=== PATIENT | female | born 1990 | race Caucasian/White ===

== ENCOUNTER 2020-10-09 04:31 | Outpatient (CLI) | payer MEDICAID, SELFPAY ==
[2020-10-09 12:46] LABS: Abs Immature Grans 0.02 10^3/uL (0.0-0.06); Absolute Basophil Count 0.05 10^3/uL (0.0-0.2); Absolute Eosinophil Count 0.07 10^3/uL (0.0-0.7); Absolute Monocyte Count 0.62 10^3/uL (0.1-0.8); Absolute Neutrophil Count 6.71 10^3/uL (1.2-6.7); Basophils % 0.5; Eosinophils % 0.7; HCT 40.2 % (36.0-46.0); HGB 13.9 g/dL (11.2-15.7); Immature Grans % 0.2; Lymphocytes % 20.3; MCH 31.6 pg (27.0-33.0); MCHC 34.6 % (32.0-36.0); MCV 91.4 fL (80-95); MPV 9.6 fL (8.0-11.0); Monocytes % 6.6; Neutrophils % 71.7; Nucleated RBC 0 %; Platelet Count 279 10^3/uL (130-400); RDW 12.5 % (11.7-14.6); RDW-SD 41.4 fL; WBC 9.37 10^3/uL (4.4-10.8)
[2020-10-10 10:00] LABS: Varicella IgG Antibody Positive (See Note)
[2020-10-10 10:05] LABS: Rubella IgG Ab (UVM) Positive (See Note); Syphilis Serology (RPR) Negative (Negative)
[2020-10-10 10:53] LABS: Hepatitis B Surface Ag Negative (Negative)
[2020-10-10 11:27] LABS: HIV-1/2 Ag & Ab Screen Negative (Negative)
[2020-10-10 11:37] LABS: Hepatitis C Ab w Rflx HCV PCR Negative (Negative)
[2020-10-13 16:15] LABS: Result Summary NEGATIVE; Specimen WB Whole Blood
== END 2020-10-09 04:51 ==
PROVIDERS: Advanced Practice Midwife; PCP Registered Nurse; Visit Provider Advanced Practice Midwife
DX: Z34.92 Encounter for supervision of normal pregnancy, unspecified, second trimester (principal); Z11.4 Encounter for screening for human immunodeficiency virus [HIV]; Z11.59 Encounter for screening for other viral diseases
CPT/HCPCS: 36415; 86787; 86803; 86850; 86900; 86901; 87340; 87389; 81220; 84443; 85025; 86592; 86762

== ENCOUNTER 2020-10-09 13:08 | Outpatient (REF) | payer MEDICAID, SELFPAY ==
--- NOTE | 2020-10-09 11:30 | PAPFT_PTH ---
PATIENT: Margarita Boyce LOC: [facility] U#:[id number] AGE/SX: 30/F ROOM: RE10/09/[address]: Claudia Beltran CNM : 1990 BED: DIS: 10/09/2020 SPEC #: [id number] RECD: 10/09/20 18:05 STATUS: BRADEN REQ #: [id number] RUMA: 10/09/20 11:[address]: Claudia Beltran DEPT: [facility] Cytology RECD BY: Jocelin Anna ENTERED: 10/09/20 18:05 SP TYPE: PAPFT OTHR DR: Mary Hoang Tissues: 1 - CX/ENDOCX FOR PAP SMEARS Procedures: PAP THIN PREP/UVM Screening HPV DNA PROBE Comments: [id number]
[2020-10-09 14:44] LABS: *AMPHETAMINES SCREEN URINE Negative (Negative); *BARBITURATES SCREEN URINE Negative (Negative); *BENZODIAZEPINES SCREEN URINE Negative (Negative); Cannabinoids THC POSITIVE (Negative); Cocaine Screen,Urine Negative (Negative); METHADONE URINE SCREEN Negative (Negative); OPIATES URINE SCREEN Negative (Negative)
[2020-10-09 14:45] LABS: Tricyclic Antidepressants Negative (Negative)
[2020-10-10 15:04] LABS: Chlamydia Result Negative (Negative); GC Result Negative (Negative)
[2020-10-14 11:52] LABS: Buprenorphine Negative ng/mL (Cutoff: 5.0); Norbuprenorphine Negative ng/mL (Cutoff: 2.5)
== END 2020-10-09 13:28 ==
LOC: LBN 13:08
PROVIDERS: PCP Registered Nurse; Visit Provider Advanced Practice Midwife
DX: Z34.91 Encounter for supervision of normal pregnancy, unspecified, first trimester (principal); N89.8 Other specified noninflammatory disorders of vagina; Z12.4 Encounter for screening for malignant neoplasm of cervix; Z11.51 Encounter for screening for human papillomavirus (HPV)
CPT/HCPCS: 80307; 87491; 87591; 88142; 87086; 87480; 87510; 87624; 87660

== ENCOUNTER 2020-10-12 00:39 | Outpatient (CLI) | payer MEDICAID, SELFPAY ==
--- NOTE | 2020-10-12 07:15 | DI.US_ITS ---
EXAM: US OB 2-3 TRIMESTER CLINICAL HISTORY: dating and anatomy,Z34.92. TECHNIQUE: Transabdominal obstetrical ultrasound performed. COMPARISON: No exams were available for comparison FINDINGS: Transabdominal obstetrical ultrasound performed. FINDINGS: Number of fetuses: One. position: Varied throughout the examination. heart rate: 144 bpm. Placental location: Fundal. No evidence of previa. Amniotic fluid index: Amount of fluid is within normal limits. ANATOMICAL SURVEY: Within normal limits. BIOMETRIC DATA: BPD: 4.0cm equals 18 weeks 10 days HC: 14.4cm equal 17 weeks 4 days AC: 12.4cm equals 18 weeks 0 days FL: 2.4cm equal 17 weeks 1 day Cisterna Magna: 4 mm Cerebellum: 1.7 cm Composite Age: 17 weeks 5 days EDC by US: 03/17/2021 Heart Rate: 144BPM IMPRESSION: 1. Single live intrauterine gestation as above. 2. Normal anatomic survey. DATA REPOSITORY:
== END 2020-10-12 00:40 | disposition home or self-care (01) ==
LOC: DI 00:39
PROVIDERS: PCP Registered Nurse; Visit Provider Obstetrics & Gynecology
DX: Z34.92 Encounter for supervision of normal pregnancy, unspecified, second trimester (principal)
CPT/HCPCS: 76805

== ENCOUNTER 2021-01-11 08:42 | Outpatient (CLI) | payer MEDICAID, SELFPAY ==
[2021-01-11 12:01] LABS: Glucose,1 Hr (Glucola) 93 mg/dL (80-140)
[2021-01-12 12:25] LABS: HIV-1/2 Ag & Ab Screen Negative (Negative)
== END 2021-01-11 08:43 | disposition home or self-care (01) ==
PROVIDERS: PCP Registered Nurse; Visit Provider Obstetrics & Gynecology
DX: O36.0130 Maternal care for anti-D [Rh] antibodies, third trimester, not applicable or unspecified (principal); Z11.4 Encounter for screening for human immunodeficiency virus [HIV]; Z01.84 Encounter for antibody response examination; Z3A.31 31 weeks gestation of pregnancy
CPT/HCPCS: 36415; 82950; 86850; 87389; 90384

== ENCOUNTER 2021-01-11 16:21 | Outpatient (REF) | payer MEDICAID, SELFPAY ==
[2021-01-11 17:05] LABS: *AMPHETAMINES SCREEN URINE Negative (Negative); *BARBITURATES SCREEN URINE Negative (Negative); *BENZODIAZEPINES SCREEN URINE Negative (Negative); Cannabinoids THC Positive (Negative); Cocaine Screen,Urine Negative (Negative); METHADONE URINE SCREEN Negative (Negative); OPIATES URINE SCREEN Negative (Negative)
[2021-01-11 17:29] LABS: Tricyclic Antidepressants Negative (Negative)
[2021-01-17 09:59] LABS: Buprenorphine Negative ng/mL (Cutoff: 5.0); Norbuprenorphine Negative ng/mL (Cutoff: 2.5)
== END 2021-01-11 16:22 | disposition home or self-care (01) ==
LOC: LBN 16:21
PROVIDERS: PCP Registered Nurse; Visit Provider Obstetrics & Gynecology
DX: Z34.93 Encounter for supervision of normal pregnancy, unspecified, third trimester (principal); Z3A.31 31 weeks gestation of pregnancy
CPT/HCPCS: 80307

== ENCOUNTER 2021-02-21 20:49 | Outpatient (REF) | payer MEDICAID, SELFPAY ==
[2021-02-21 14:21] LABS: *AMPHETAMINES SCREEN URINE Negative (Negative); *BARBITURATES SCREEN URINE Negative (Negative); *BENZODIAZEPINES SCREEN URINE Negative (Negative); Cannabinoids THC Positive (Negative); Cocaine Screen,Urine Negative (Negative); METHADONE URINE SCREEN Negative (Negative); OPIATES URINE SCREEN Negative (Negative)
[2021-02-21 14:22] LABS: Tricyclic Antidepressants Negative (Negative)
[2021-02-27 11:52] LABS: Buprenorphine Negative ng/mL (Cutoff: 5.0); Norbuprenorphine Negative ng/mL (Cutoff: 2.5)
== END 2021-02-21 20:50 | disposition home or self-care (01) ==
LOC: LBN 20:49
PROVIDERS: PCP Registered Nurse; Visit Provider Obstetrics & Gynecology Gynecology
DX: Z34.93 Encounter for supervision of normal pregnancy, unspecified, third trimester (principal); Z36.85 Encounter for antenatal screening for Streptococcus B; Z3A.38 38 weeks gestation of pregnancy
CPT/HCPCS: 80307; 87081

== ENCOUNTER 2021-03-09 02:20 | Outpatient (CLI) | payer MEDICAID, SELFPAY ==
[2021-03-15 14:26] LABS: HIV 1 RNA Qualitative Undetected copies/mL (Undetected)
== END 2021-03-09 02:21 | disposition home or self-care (01) ==
LOC: LBO 02:20
PROVIDERS: Internal Medicine; PCP Registered Nurse; Visit Provider Obstetrics & Gynecology Gynecology
DX: O26.893 Other specified pregnancy related conditions, third trimester (principal); Z20.6 Contact with and (suspected) exposure to human immunodeficiency virus [HIV]; Z3A.40 40 weeks gestation of pregnancy
CPT/HCPCS: 36415; 87389; 87536

== ENCOUNTER 2021-03-16 08:11 | Outpatient (CLI) | payer MEDICAID, SELFPAY ==
--- OUTSIDE RECORDS SUMMARY | 2021-03-16 08:15 | XMS_ITS ---
:1990 Author Care Team Providers Name Role Phone Provider, Outside Primary Care Provider Unavailable Allergies Code Code System Name Reaction Severity Status Onset NKDA ? Notes: dust Medications Name Status Start Date Stop Date ? ? Benadryl Dye-Free Allergy 25 mg capsule Completed 12/30/19 15 04/07/2015 1 (one) Capsule: at bedtime doxycycline hyclate 100 mg Completed ? 03/15 tablet emtricitabine 200 mg-tenofovir disoproxil fumarate 300 mg tablet Active ? Not available TAKE ONE TABLET BY MOUTH AT THE SAME TIME EVERY DAY loratadine 10 mg tablet Active ? Not avai lable Ortho Tri-Cyclen LO (28) 0.18 mg/0.215 mg/0.25 mg-25 mcg tab let Completed 12/29/2014 12/29/2014 1 (one) Tablet: daily RID Lice Killing 0.33 %-4 % shampoo Completed ? 02/24/2019 Apply 0.147 applications every day by topical route as needed f or 1 day. Xopenex HFA 45 mcg/actuation aerosol inhaler Completed 12/29/2014 2 (two) Aerosol: every six hours as needed Problems Name Status Onset Date Source ? Alcohol Abuse Active ? History Cannabis Abuse Active ? History Adjustment Disorder with Anxious Mood Active ? History Esotropia Active ? History Seasonal Allergic Rhinitis Active ? Histo ry Asthma Active ? History Exposure to Sexually Transmissible Disorder Active ? History Contraception Care Management Active ? La story Adult Health Examination Active ? History Procedures Date Name Performed by ? ? Ear Tube Information not avai labaleta Notes: as a child Results Lab Results Date Name Specimen Result Interpretation Description Value Range Status Address ? 08/17/2020 ? Hcg positive ? ? P _nc Primary Test, Urine [place]: [address] [facility] Past Encounters 08/17/2020 Secondary Amenorrhea Mary Hoang, DRY SANDER: [address] [place] [address] Dr [address], [place] [address], Ph. Social History Tobacco Smoking Status Current Some Day Smoker Vaccine List Vaccine Type DTaP 12/27/2004 02/09/2008 [id number] [birth year] DTaP-IPV 05/28/1992 04/28/1995 Hep B, adolescent or pediatric 12/28/1998 01/30/1999 06/28/1999 Hib (HbOC) 09/24/1991 HPV, quadrivalent 03/31/2007 06/04/2007 10/02/2007 influenza, injectable, quadrivalent 06/08/2020 meningococcal MPSV4 02/09/2008 MMR 09/24/1991 12/28/1998 Td (adult), adsorbed 03/15/2019 Tdap 02/09/2008 varicella 07/21/2001 11/27/2006 Plan of Care Reminders Provider Appointments None ? ? recorded. Lab None ? ? recorded. Referral None ? ? recorded. Procedures None ? ? recorded. Surgeries None ? ? recorded. Imaging None ? ? recorded. Vitals 08/17/2020 11:20AM Acute 20 Weight Blood Pressure 69.17 kg 118/78 mm[Hg] 03/15/2019 09:20AM Follow Up 20 Height Weight BMI Blood Pressure 163.83 cm 65.59 kg 24.4 kg/m2 110/70 mm[Hg] 02/24/2019 02:40PM Acute 20 Height Weight BMI Blood Pressure 163.83 cm 63.87 kg 23.8 kg/m2 106/80 mm[Hg] 04/07/2015 Height Weight 161.29 cm 80.1 kg 04/07/2015 Blood Pressure 116/64 mm[Hg] 12/29/2014 Weight 80.38 kg 12/29/2014 Blood Pressure 136/84 mm[Hg]
== END 2021-03-16 08:12 | disposition home or self-care (01) ==
PROVIDERS: PCP Registered Nurse; Visit Provider Obstetrics & Gynecology Gynecology
DX: R69 Illness, unspecified (principal)

== ENCOUNTER 2021-03-20 00:10 | Inpatient (IN) | payer MEDICAID, SELFPAY ==
[2021-03-20] VITALS (12 sets, daily range): BP systolic 107–136; BP diastolic 59–76; PULSE 64–91; RESP 14–18; TEMP 36.5–36.6; O2SAT 98–99
--- NOTE | 2021-03-20 00:15 | W.PM.OBHPL1 ---
Date of service: 03/20/21 Time of Service: 00:15 Assessment and Plan Assessment and plan (1) Uterine contractions: Status: Acute Assessment and plan: Onset yesterday evening worsening during the day. No rupture membranes no bloody show. Plan at this time is to support patient with uterine contractions. Draw labs and follow cervical exam (2) Post-dates : Status: Acute Qualifiers: Post-term type: 40-42 weeks gestation Qualified Code(s): O48.0 - Post-term OB-HPI Labor/Delivery History of Present Illness Reason for Visit: Suspected early labor at 40 weeks and 6/7 days EGA Chief Complaint: Uterine Contractions. RAMAN Calculator Estimated Delivery Date Method Current WG Current Estimate 03/13/21 Ultrasound #1 41w 0d Other Estimates 04/01/21 LMP (Uncertain) 38w 2d History of Present Expected Delivery Route/Plan - recommend MD care d/t risk factors FOB/fiance - Williams, has one step child with shared custody. He is HIV pos. Specific Issues/Plan 1. 10/09/20:FOB (Williams) HIV positive, is seen at [facility] referral placed for infectious disease, patient met with Dr. Weathers at [facility] is to start Truvada 11/14/20. 01/30/21. Repeat HIV ordered. 2. 10/09/20:CF neg 3. 10/09/20:declination signed for Endeavor / AFP/Quad. 4. Rh neg, RhoGam @ 28 wks. DONE Assessment: History Reviewed & Current Narrative: The patient presented to the center with complaints of contractions increasing in intensity and frequency over the last 24 hours. No rupture membranes or bloody discharge. Reviewing her course: Total of 8 visits two of which which were telehealth. Total weight gain 24 pounds. First rest of blood pressure 118/66 third trimester blood pressure 109/63. Currently EGA 40 weeks 6/7 days by a first trimester OB ultrasound most recent testing for HIV negative beginning of March. Review of Systems All systems reviewed & are unremarkable except as noted in HPI and below PFSH Medical History (Updated 03/20/21 @ 00:25 by Anastasiya Gray MD) Asthma diagnosed as child, rare use of inhaler now HIV exposure from body fluids Partner is HIV positive. 12/2020. Patient given Rx for Truvada during . Surgical History (Updated 10/09/20 @ 10:50 by Claudia Beltran CNM) History of placement of ear tubes Family History Mother Rheumatoid arthritis Sister Crohn's disease Sister Down syndrome Thyroid disorder Social History (Updated 02/21/21 @ 12:36 by Anastasiya Gray MD) Smoking risk assessment performed?: No Household members: significant other and other Details: lives with STEPHEN Kramer. neither of them are working Number of Children: 0 current occupation: not working. Has reach up, food stamps Female Reproductive History Menstrual Age of Menarche: 11 Duration of menses: 3-5 days control method: none History History 1 Para 0 Hx # Term Pregnancies 0 Multiple births 0 Hx # Pregnancies 0 Ectopic pregnancies 0 AB induced 0 Hx Number of Living Children 0 AB spontaneous 0 Meds Allergies and Home Medications Allergies Allergy/AdvReac Type Severity Reaction Status Date / Time No Known Allergies Allergy Verified 02/21/21 10:52 Home Medications Medication Instructions Recorded Confirmed Type calcium carbonate 200 mg calcium 200 mg PO BID 08/29/20 10/09/20 History (500 mg) chewable tablet loratadine 10 mg capsule 10 mg PO DAILY 08/29/20 10/09/20 History prenat.vits,maria eugenia,[id number] 1 tab PO DAILY 09/26/20 10/09/20 History emtricitabine 100 mg-tenofovir tab PO DAILY tab 01/11/21 History disoproxil fumarate 150 mg tablet Exam Physical Exam Vital Signs Reviewed: Yes Notable Details: Patient uncomfortable with contractions. Constitutional Constitutional: mild distress (Vocalizing during contractions.) Detailed Labor and Delivery Exam Dilation: 0 Effacement (%): 50 station: 0 Position: OA Cervix position: posterior Consistency: soft Ramirez Score: Cervical Points Exam 0 1 2 3 Dilation Closed 1-2cm 3-4 cm 5-6cm Effacement 0-30% 40-50% 60-70% 80% Consistency Firm Medium Soft Station -3 -2 -1,0 +1,+2 Position Posterior Mid Anterior RAMIREZ Score(Cervical Ripeness Score): 5 Amniotic Membrane Status: Intact Monitor Mode: External Contraction Frequency(min): 3 Contraction Duration(sec): 40 Contraction Intensity: Mild/Moderate (To palpation) Fetus A Heart Rate Baseline: 140 Monitor Accelerations: 15 X 15 Monitor Decelerations: None Variability: Moderate (6-25 BPM) Presentation: Cephalic Categories: Category I Est. Weight: 7 lb 14.986 oz Neck Exam Neck Exam: Normal Chest/Brest/Axilla Exam Chest Exam: Not Done Breast Exam Breast Exam: Not Done Respiratory Exam Respiratory Exam: Normal Cardiovascular Exam Cardiovascular Exam: Normal Abdominal Exam Abdominal Exam: Normal Rectal Exam Rectal Exam: Not Done Exam Exam: Normal Extremities Exam Extremities Exam: Normal Back/Spine/Pelvis Exam Back Exam: Normal Pelvis Adequate: Yes Skin Exam Skin Exam: Normal Psychiatric Exam Psychiatric Exam: Normal Results Results Group Beta Strep: Negative Blood Type: A- Rubella Status: Immune Varicella Immunity: Immune Lab Results: Patient declined aneuploidy testing. Cystic fibrosis screening negative. Several serial HIV testing negative. Risk Assessment Risk for Shoulder Dystocia 40 Weeks: NEGATIVE FOR: EFW> 4500 gms, Maternal Weight Gain >40lb or Post Dates Increased Risk?: No Date/Initial: 03 20 2021 Delivery Plan @ 40 wks: 03/09/2021 Risk for Pre-Eclampsia Daily Dose ASA Indicated: No Yes, if one or more: NEGATIVE FOR: Hx Pre-E/Gest HTN, Chronic HTN, Multiple Gestation, Pre-gestational DM, Renal Disease or Systemic Lupus Yes, if 2 or more: POSITIVE FOR: Nulliparity; NEGATIVE FOR: Age>= 35 yrs, >10yr btwn pregnancies, BMI>30, ethinicty or Mother/Sister w/ Pre-E Risk for Post- Hemorrhage Initial: NEGATIVE FOR: Multiple Gestation, Previous PPH, Known Clotting Deficiency, Grand Multiparity or Anticoagulation At Risk?: No Counseled re: Active Management: Yes Date/Initials: 03/09/2021 Risks Reviewed Risks Reviewed Upon Admission: Yes
[2021-03-20 00:45] LABS: Source Nasal/Nares
[2021-03-20 00:46] LABS: HCT 39.2 % (36.0-46.0); HGB 13.3 g/dL (11.2-15.7); MCH 30.7 pg (27.0-33.0); MCHC 33.9 % (32.0-36.0); MCV 90.5 fL (80-95); Platelet Count 346 10^3/uL (130-400); RBC 4.33 10^6/uL (3.93-5.22); RDW 13.1 % (11.7-14.6); WBC 15.29 10^3/uL (4.4-10.8)
[2021-03-20] MEDS: Zolpidem 10 MG TAB PO (01:00)
[2021-03-20 02:01] LABS: HIV 1/2 Ab Rapid Negative (Negative)
[2021-03-20 02:10] LABS: COVID-19 PCR Negative (Negative)
--- NOTE | 2021-03-20 06:25 | W.PM.OBNL1 ---
Date of service: 03/20/21 Time of Service: 06:25 Informed Consent Informed Consent: Regional Anesthesia Pelvic Exam Dilation: 7 Effacement (%): 100 station: +1 Position: OA Cervix Position: mid Consistency: soft Vaginal Exam Presentation: Cephalic Contractions Monitor Mode: Palpation Contraction Duration(sec): 40 Intensity: Moderate/Strong Fetus A Monitor: Doppler Heart Rate Baseline: 145 (Monitor during contractions if patient allows) Presentation: Cephalic Assessment and Plan Assessment and plan (1) Post-dates : Status: Acute Qualifiers: Post-term type: 40-42 weeks gestation Qualified Code(s): O48.0 - Post-term (2) Vaginal delivery: Status: Acute Objective Abnormal lab results 03/20/21 Range/Units 00:32 WBC 15.29 H (4.4-10.8) 10^3/uL Temp Pulse Resp BP Pulse Ox 97.9 F 78 14 114/67 98 03/20/21 00:05 03/20/21 04:25 03/20/21 04:25 03/20/21 04:25 03/20/21 00:05 Laboratory Results WBC 15.29 10^3/uL (4.4-10.8) H 03/20/21 00:32 RBC 4.33 10^6/uL (3.93-5.22) 03/20/21 00:32 Hgb 13.3 g/dL (11.2-15.7) 03/20/21 00:32 Hct 39.2 % (36.0-46.0) 03/20/21 00:32 MCV 90.5 fL (80-95) 03/20/21 00:32 MCH 30.7 pg (27.0-33.0) 03/20/21 00:32 MCHC 33.9 % (32.0-36.0) 03/20/21 00:32 RDW 13.1 % (11.7-14.6) 03/20/21 00:32 Plt Count 346 10^3/uL (130-400) 03/20/21 00:32 MPV 10.0 fL (8.0-11.0) 03/20/21 00:32 COVID-19 Source Nasal/Nares 03/19/21 23:50 SARS-CoV-2 (PCR) Negative (Negative) 03/19/21 23:50 HIV 1&2 Antibody Rapid Negative (Negative) 03/20/21 00:32 Patient ABO/Rh A Negative 03/20/21 00:32 Antibody Screen POSITIVE 03/20/21 00:32 Antibody Identification Anti-D 03/20/21 00:32 Subjective Interval history since last seen: Patient was admitted early on the morning of 03/20/2021 with painful regular contractions. She was given Ambien for therapeutic rest however has not slept. She has been active on the birthing ball and sitting on the toilet during the night. heart rate monitoring has been performed by the Doppler. At 0530 SVE 6 cm 100% 0 station with intact bag vigil. Patient was unable to tolerate the supine position and attempted AROM. Results Hemoglobin/Hematocrit: Hgb 13.3 g/dL (11.2-15.7) 03/20/21 00:32 Hct 39.2 % (36.0-46.0) 03/20/21 00:32 Abnormal Lab Findings: Abnormal Labs 03/20/21 00:32 WBC 15.29 H
[2021-03-20] MEDS: Lidocaine 1% Multi-Dose 20 ML VIAL IJ (07:44)
[2021-03-20] MEDS: Oxytocin 10 UNITS/ML VIAL IM (07:45)
[2021-03-20] MEDS: Acetaminophen 325 MG TAB 650 MG PO ×3 (10:07→22:14)
[2021-03-20] MEDS: Dibucaine 1% 28 GM TUBE TP (10:19)
--- NOTE | 2021-03-20 12:07 | W.OBDELIVERY ---
Date of service: 03/20/21 Time of Service: 12:11 OB Labor/ Delivery Information Providers Doctor: Anastasiya Gray Logistic Manager: Johanny Coffey Nurse: Quintin Weber Nurse: Aidee Reina RN Labor/Delivery Information Number of Babies in Womb: 1 Steroids Given: None Reason Steroids Not Administered: N/A Group Beta Strep: Negative Rubella Status: Immune Blood Type: A- Varicella Immunity: Immune Medication in Delivery: Pitocin IM Maternal Complications: None Shoulder Dystocia: No Stages of Labor Onset of Labor Date: 03/19/21 Onset of Labor Time: 10:00 Complete Dilatation Date: 03/20/21 Complete Dilatation Time: 06:32 Labor - Stage 1 Duration: 24 hours and 0 minutes ROM Baby A: 03/20/21 ROM Baby A: 06:15 ROM Total Time- Baby A: [id number] Delivery Date-Baby A: 03/20/21 Infant Delivery Time-Baby A: 07:07 Labor Stage 2 Duration: 35 minutes Placenta Delivery Date-Baby A: 03/20/21 Placenta Delivery Time-Baby A: 07:10 Labor-Stage 3 Duration: 3 minutes Total Length of Labor-Baby A: 21 hours and 7 minutes Placenta Cultured: No Placenta Status: Delivered Baby A Infant Gender: Female Gestational Status: Term (39-41.6 wks) Gestational Age in Weeks/Days: 41 Weeks and 0 Days Score-1 Minute Interval(Baby A) Heart Rate-1 minute: 100 BPM or Greater Respiratory Effort- 1 minute: Spontaneous/Strong Cry Muscle Tone-1 minute: Active Movement Reflex Response-1 minute: Prompt Response Color-1 minute: Bluish Hands or Feet Total Score-1 minute: 9 Score-5 Minute Interval(Baby A) Heart Rate- 5 minute: 100 BPM or Greater Respiratory Effort-5 minute: Spontaneous/Strong Cry Muscle Tone-5 minute: Active Movement Reflex Response-5 minute: Prompt Response Color-5 minute: Bluish Hands or Feet Total Score- 5 minute: 9 Procedure Procedures: Cord Blood Collection Interventions Pain Management Interventions: Coping Well, No Interventions needed . Shoulder Dystocia Delivery Times Head to Body Delivery Interval(minutes): less than one minute. Verify No Fundal Pressure Applied Fundal Pressure: No Pressure Applied
[2021-03-20] MEDS: Emtricitabine/Tenofovir 200 mg/300 mg TAB 1 EACH PO (12:34)
--- NOTE | 2021-03-20 16:22 | NUR.NOTE ---
Aidee Cleary in to speak with pt and FOB Nursing Note:
[2021-03-21 00:49] VITALS: BP 113/75; PULSE 83; RESP 16; TEMP 36.7; O2SAT 97
[2021-03-21] MEDS: Acetaminophen 325 MG TAB 650 MG PO ×3 (02:49→13:38)
[2021-03-21 03:24] VITALS: BP 124/84; PULSE 83; RESP 16; TEMP 36.5
[2021-03-21 07:30] VITALS: BP 124/81; PULSE 80; RESP 16; TEMP 36.5; O2SAT 98
[2021-03-21] MEDS: Dibucaine 1% 28 GM TUBE TP (07:43)
--- NOTE | 2021-03-21 07:49 | W.PM.OBPNV1 ---
Date of service: 03/21/21 Time of Service: 07:49 Assessment and Plan Assessment and plan (1) Vaginal delivery: Status: Acute Assessment and plan: Doing well. Would like D/C home today. Understands need for follow up. Signs and symptoms of post depression discussed (2) HIV exposure from body fluids: Status: Acute Assessment and plan: Partner is HIV positive. On Truvada for prophylaxis Subjective Subjective Interval history: Patient seen. Doing well this AM. Questions answered. Desires D/C home today Patient comments: No complaints, Pain well controlled and Tolerating diet Patient's Mood: Good baby status: Doing well, Rooming in and Strong Bonding Observed Exam Physical Exam Vital signs: Temp Pulse Resp BP Pulse Ox 97.7 F 83 16 124/84 97 03/21/21 03:24 03/21/21 03:24 03/21/21 03:24 03/21/21 03:24 03/21/21 00:49 Constitutional Constitutional: no acute distress HEENT Exam HEENT Exam: Normal Respiratory Exam Respiratory Exam: Normal Cardiovascular Exam Cardiovascular Exam: Normal Abdominal Exam Comments: Soft, non-tender Fundal Exam Fundus: Below Umbilicus and Firm Extremities Exam Extremity Exam: Normal; negative Calf Tenderness and Edema Skin Exam Skin Exam: Normal DetailedPsychiatric Exam Psych Exam: Normal Affect, Normal Thougth Process, Cooperative and Good Insight Results Hemoglobin/Hematocrit: Hgb 13.3 g/dL (11.2-15.7) 03/20/21 00:32 Hct 39.2 % (36.0-46.0) 03/20/21 00:32 Abnormal Lab Findings: Abnormal Labs 03/20/21 00:32 WBC 15.29 H
--- NOTE | 2021-03-21 07:53 | W.PM.OBDISCH ---
Date of service: 03/21/21 Time of Service: 07:53 DS: Diagnosis Discharge Diagnosis (1) Vaginal delivery: Status: Acute (2) HIV exposure from body fluids: Status: Acute Discharge Plan Discharge Details Reason For Visit: IUP at 40W6/7 EGA Admit Date/Time: 03/20/21 00:10 Admit Provider: Anastasiya Gray Attending Provider: Anastasiya Gray Primary Care Provider: Mary Hoang Home Meds and New Rx's Prescriptions: No Action calcium carbonate [Tums] 200 mg calcium (500 mg) tablet,chewable 200 mg PO BID RF: 0 loratadine 10 mg capsule 10 mg PO DAILY RF: 0 prenat.vits,maria eugenia,[id number] Tablet 1 tab PO DAILY RF: 0 emtricitabine-tenofovir (TDF) [Truvada] 100-150 mg tablet PO DAILY RF: 0 OB:DS Summary Summary Episiotomy Description: None Contraception Discussed Contraception Discussed: Yes Contraceptive Plan: Control Pill/Patch, Gender-Baby A: Female weight: 6 lb 0.651 oz Status at Discharge Functional status at discharge: independent ambulation Overall status at discharge: patient is back to baseline Mental Status: mental status grossly normal Speech and Movement: speech and movement normal Mood: congruent mood Affect: normal affect Exam Physical Exam Vital signs: Temp Pulse Resp BP Pulse Ox 97.7 F 83 16 124/84 97 03/21/21 03:24 03/21/21 03:24 03/21/21 03:24 03/21/21 03:24 03/21/21 00:49 Constitutional Comments: See progress note dated 03/21/2021 [facility] Medical History Asthma diagnosed as child, rare use of inhaler now HIV exposure from body fluids Partner is HIV positive. 12/2020. Patient given Rx for Truvada during . Vaginal delivery 03/20/21. Shruti Skelton. Surgical History History of placement of ear tubes Family History Mother Rheumatoid arthritis Sister Crohn's disease Sister Down syndrome Thyroid disorder Social History Smoking/Tobacco Use Status: Never Smoking risk assessment performed?: Yes Alcohol Intake: never Drug use: Binges Substance use type: marijuana Household members: significant other and other Details: lives with STEPHEN Kramer. neither of them are working Number of Children: 0 current occupation: not working. Has reach up, food stamps Do you feel safe at home: Yes Do you feel safe in your relationship?: Yes Female Reproductive History Menstrual Age of Menarche: 11 Duration of menses: 3-5 days control method: none History History 1 Para 0 Hx # Term Pregnancies 0 Multiple births 0 Hx # Pregnancies 0 Ectopic pregnancies 0 AB induced 0 Hx Number of Living Children 0 AB spontaneous 0 DS: Data Vitals/I&O Vitals and I&O: Vital Signs Temperature 97.7 F 03/21/21 03:24 Pulse 83 03/21/21 03:24 Pulse Rhythm Regular 03/21/21 00:49 Respiratory Rate 16 03/21/21 03:24 Blood Pressure 124/84 03/21/21 03:24 Blood Pressure Mean 97 03/21/21 03:24 Pulse Oximetry 97 03/21/21 00:49 Oxygen Delivery Method Room Air 03/20/21 01:21 Oxygen Flow Rate 0 03/20/21 01:21 Pain Level 2 03/21/21 07:42 Comment 03/20/21 04:25 Intake & Output 03/20/21 03/20/21 03/21/21 11:59 23:59 11:59 Output Total 450 / 1350 900 / 1350 Balance -450 / -1350 -900 / -1350 Output: Urine 450 / 1350 900 / 1350 Other: Urine Color Yellow Yellow Data Completed and Pending Labs on day of discharge: Labs from last 24 hours 03/20/21 03/20/21 15:48 00:32 Screen Pending Unit Expiration Date [id number] Product Lot # [id number]
[2021-03-21] MEDS: Emtricitabine/Tenofovir 200 mg/300 mg TAB 1 EACH PO (12:37)
--- NOTE | 2021-03-21 15:40 | CMPROGNOTE_ITS ---
- If Service Date Differs Date of service: 03/21/21 Time of Service: 15:40 Care Management Progress Note CM is asked by OB nursing staff to meet with Margarita to assess for need. Margarita reports she will have lots of help at home with her new daughter. She shares the baby is her first child and that the was not planned. She states she wasn't sure how she felt about having a baby at first but as the progressed she became more and more excited about being a mom. Margarita reports she has already been in touch with WIC and with [facility]. She has Medicaid, food stamps, a safe place to live, and family support. Transportation has been a problem off and on as their vehicle is often broken down but she has friends she can call on for rides to appointments. FIDEL discusses [facility] with her and Margarita advises she has used [facility] in the past and she knows how to reach them if needed. Margarita is in the process of establishing care with the [facility]. She is advised that OB nursing staff will schedule an appointment for her before she leaves.
[2021-03-22 09:40] LABS: HIV-1/2 Ag & Ab Screen Negative (Negative)
== END 2021-03-21 17:15 | disposition home or self-care (01) | DRG 806 ==
PROVIDERS: Admitting Provider Obstetrics & Gynecology Gynecology; PCP Registered Nurse; Visit Provider Obstetrics & Gynecology Gynecology
DX: O48.0 Post-term pregnancy (principal); O36.0930 Maternal care for other rhesus isoimmunization, third trimester, not applicable or unspecified; Z37.0 Single live birth; Z3A.41 41 weeks gestation of pregnancy; O99.52 Diseases of the respiratory system complicating childbirth; J45.909 Unspecified asthma, uncomplicated; Z20.6 Contact with and (suspected) exposure to human immunodeficiency virus [HIV]
CPT/HCPCS: 36415; 85027; 85461; 86850; 86900; 86901; 87389; 87635; 90384; 86870; J2590; J2790; J3490

== ENCOUNTER 2022-11-22 14:09 | Emergency (ER) | payer MEDICAID, SELFPAY ==
--- NOTE | 2022-11-22 14:15 | DI.CT_ITS ---
Exam(s) CT HEAD WO EXAM: CT HEAD WO CLINICAL HISTORY: Trauma, Confusion. TECHNIQUE: Imaging Protocol: Axial computed tomography images with coronal and sagittal reformatted images were created and reviewed COMPARISON: No exams were available for comparison FINDINGS: Ventricles and Extra axial spaces: Normal in size and morphology for the patient's age. Hemorrhage: None. Cerebral parenchyma: Normal. Midline shift: None. Brainstem/Cerebellum: Normal. Calvarium: Normal. Visualized Paranasal sinuses/Mastoids: Clear. Soft Tissues: Unremarkable. IMPRESSION: 1. No acute intracranial process. 2. Findings were discussed with the emergency department at 4:09 p.m. on 11/22/2022. RADIATION DOSE DELIVERED: 645.46mGy.cm Total DLP DATA REPOSITORY: All CT scans at this facility are submitted to the National Radiology Data Registry (NRDR) Dose Index Registry (DIR) with the [employer] ([employer]). RADIATION OPTIMIZATION: All CT scans at this facility use at least one of these dose optimization te chniques: automated exposure control; mA and/or kV adjustment per patient size (includes targeted exa ms where dose is matched to clinical indication); or iterative reconstruction.
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
[2022-11-22 14:34] VITALS: BP 131/91; PULSE 102; TEMP 37; O2SAT 95
[2022-11-22 15:04] VITALS: RESP 18
[2022-11-22 15:17] LABS: Bilirubin Small (Negative); Blood Trace-intact (Negative); Clarity Clear (Clear); Glucose Negative (Negative); Ketones 15 mg/dL (Negative); Leukocyte Esterase Negative (Negative); Nitrite Negative (Negative); Specific Gravity >= 1.030 (1.005-1.025); Urobilinogen 0.2 mg/dL (Up to 0.2)
[2022-11-22 15:27] LABS: Bacteria Negative HPF (Negative); C & S Indicated? No; Casts Negative LPF (Negative); Crystals Negative HPF (Negative); Epithelial Cells Many HPF (Negative); Mucus Negative (Negative); Other Cells Negative (Negative); WBC 0-2 HPF (0-5)
[2022-11-22 15:37] LABS: *AMPHETAMINES SCREEN URINE Negative (Negative); *BARBITURATES SCREEN URINE Negative (Negative); *BENZODIAZEPINES SCREEN URINE Negative (Negative); Cannabinoids THC Positive (Negative); Cocaine Screen,Urine Negative (Negative); METHADONE URINE SCREEN Negative (Negative); OPIATES URINE SCREEN Negative (Negative); Tricyclic Antidepressants Negative (Negative)
--- NOTE | 2022-11-22 15:53 | NUR.NOTE ---
pt appears altered at this time. pt understands where she is but does not understand why she is here. pt at this time calm and cooperative. pt has been fed.
--- NOTE | 2022-11-23 06:30 | NUR.NOTE ---
Assumed care of pt @0038 from ANA LILIA Castillo. Introduced self to pt, who appeared very anxious and wary of this RN. Pt restless overnight and refusing to drink anything but coffee. Giving pt decaffeinated coffee d/t highly anxious/manic demeanor. Talking to [employer] non-stop, w/ a rambling, flight of fancy, stream of consciousness manner. Provided education to pt on importance of sleep, and provided activities overnight like coloring, fidget toys etc., clustered care and minimized stimuli to promote rest. Pt slept for maybe two hours during overnight shift. Became very anxious and agitated while watching AM news. Calling this RN to bedside to discuss things on news ('Did you know about this skilled nursing COVID? And there are other variants?') and appearing incredibly emotional, verging on tears, while discussing news events w/ this RN. When this RN suggested pt try watching something less distressing to her to help reduce her agitation/anxiety, pt perseverating on the idea that she should 'show less emotions'. Provided further education that emotions are perfectly fine, but that its a good idea to disengage w/ things that pt obviously finds extremely upsetting on TV by changing the channel, or engaging in other activities for her emotional well being. Pt seems to have difficulty understanding, but does switch to watching [employer] videos. Will continue to encourage activities and provide education to help w/ pt's emotional and mental state by reducing anxiety/agitation.
[2022-11-23 07:00] VITALS: BP 112/76; PULSE 81; RESP 17; TEMP 36.6; O2SAT 96
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
--- NOTE | 2022-11-23 10:10 | NUR.NOTE ---
Nursing Note: Report received from Chuck SUNG
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
--- NOTE | 2022-11-23 12:42 | CMSP_ITS ---
- If Service Date Differs Date of service: 11/23/22 Time of Service: 12:42 Care Management Safety Plan Status: Voluntary - Reason for Wait Reason for Wait: Inpatient Admission VOLUNTARY FOR INPATIENT PSYCHIATRIC STABILIZATION. Patient is appropriate in all interactions since arriving at [facility]; Pt has demonstrated appropriate coping and communication skills, has articulated his or her needs and concerns and is fully engaged during staff interactions. Safety plan has been established with patient, and care team, to adhere to patient goals, identify restrictions based on behavioral status, address nutrition, and determine allowed personal belongings, tools for hygiene and personal care. Determine level of activity including ambulation, level of supervision, visitors, and determine privileges based on behaviors and level of engagement by pt. SAFETY PLAN: 1. Will remain on suicide precautions. In Paper Clothes 2. Will remain in room under direct supervision of one-on-one staff at all times provided by CPSO; LIBRA, TOP HAT BODY MAKER dinkey motor operator. 3. May have paper cups, plates, finger foods as well as a cardboard spoon with which to eat meals. 4. Follow [facility] Management of the Admitted Behavioral Health Patient policy. 5. Comfort bath system only, shower permitted with escort at RN discretion. 6. No personal belongings-soft items permitted at RN discretion. 7. Visitors-none at this time. 8. Activities: soft cart items approved per RN discretion. 9. Bathroom privileges with escort in the ED, available in room without limitation on M/S. 10. Phone: no phone privileges at this time 11. Due to VOLUNTARY status, if patient wishes to leave [facility], staff will contact [facility] Crisis Screener ([phone]) and On-Call Wedding Coordinator ([phone]) as soon as possible. In the event of elopement, notify [facility] Police ([phone]). Patient is currently voluntarily at [facility] and seeking inpatient admission when a bed becomes available. [facility] Frontline Data Governance Consultant will continue seeking placement. Please contact the Trust Officer Wedding Coordinator ([phone]) and [facility] Data Governance Consultant ([phone]) for any needed changes in the Safety Plan. Safety plan has been provided to interdepartmental care team.
--- NOTE | 2022-11-23 14:53 | PDOC.ERCMPRO ---
- If Service Date Differs Date of service: 11/23/22 Time of Service: 12:30 Care Management Progress Note S/O:Margarita was sitting up in bed when CM met with her. She was cooperative, maintained good eye contact and was agreeable to conversation. Margarita informed CM that she does not have a clear recollection of all of the events of the past few days. She knows she took her baby Destiny to her friend Dorie's house and asked her to watch her but is unclear if she went to a store or why or how she ended up where she is. She verbalized that she would really like an advocate - permanently. She stated that she knows she needs help and would like someone to be her person that could help with navigating the healthcare system. Margarita is seeking voluntary treatment in a psychiatric facility. She admitted to being a little nervous about that. CM explained some of what to expect and answered questions. FIDEL also explained about the need for a safety plan while at [facility] and what it contains. Margarita does not have a current HIPAA form and many people have called the ED asking for information. CM brought a HIPAA form to Margarita to see who she would want to have information. After some discussion, Margarita decided that she did not want anyone on her HIPAA today. She stated that she wanted some time to think about it and asked if CM could fill out the form with her tomorrow. She shared that she is not comfortable with [facility] staff sharing information when she has not had the opportunity to speak to those people herself. For the time being, she will not have phone or visitor privileges and she is in agreement with that plan. FIDEL also asked about her relationship with her SO Williams. She reported that she and Williams went to [place] at the beginning of July and returned shortly after V[place]. Everything was fine until they returned. Williams has told her that she has changed and she informed CM that she believes Williams has changed as well. Her hope was that he would also seek mental health treatment and is disappointed that he did not. P: Margarita is awaiting voluntary placement in a psychiatric facility for stabilization.
--- NOTE | 2022-11-23 22:13 | NUR.NOTE ---
Nursing Note: report from ANA LILIA Jacinto. pt sitting in chair near doorway, coloring and occasionally having conversation with CPS[employer]. Encouraged pt to think about lying down and getting some sleep soon. Offered PO
--- NOTE | 2022-11-24 01:01 | NUR.NOTE ---
Nursing Note: pt requesting to take a shower. Pt has been cooperative, reviewed care plan which states pt is allowed to shower. Pt brought upstairs via w/c with CPSO and security present.
--- NOTE | 2022-11-24 03:20 | W.EDPROG ---
Date of service: 11/23/22 Time of Service: 20:00 Medical Decision Making 11/23/221999 -- Please see previous provider's notes for initial presentation, exam, plan and course. Case endorsed to continue to monitor while awaiting placement. 0130 -- Pt requested to shower which she was able to do and was cooperative. 11/24/22 0800 -- No events overnight. Case endorsed to Dr. Hayward to continue to monitor while awaiting placement. Sign Out Sign Out Data: Sign Out Comment: Altered mental status, History of Head Injury, unknown timeframe. Patient has a small hematoma in the superficial abrasion noted to her frontal scalp. Significant other called law enforcement due to missing person since yesterday. Patient is confused and acting erratically. Flight of ideas crying. Denies suicidal ideation or homicidal ideation. CT head ordered urine drug screen and mental health evaluation. Last updated by Aury Velazquez NP at 11/22/22 15:30 Sign Out Comment: patient is being held on voluntary inpatient psychiatric admission. would EE if she decides to leave, child protective services report made by mental health Last updated by Dian Mason NP at 11/22/22 23:02 Sign Out Comment: Awaits final disposition, voluntary psychiatric admission Last updated by Jeramy Rush MD at 11/23/22 07:15 Sign Out Comment: voluntary for flight of ideas, stable during shift Last updated by Romain Hayward MD at 11/23/22 16:29 Discharge Plan Discharge Details Chief Complaint: AMS/LOC Primary Care Provider: Mary Hoang ED Provider: Tamy Hawk Home Meds and New Rx's Prescriptions: No Action calcium carbonate [Tums] 200 mg calcium (500 mg) tablet,chewable 200 mg PO BID Patient Comments: not taking loratadine 10 mg capsule 10 mg PO DAILY Patient Comments: not taking prenat.vits,maria eugenia,[id number] Tablet 1 tab PO DAILY Patient Comments: not taking emtricitabine-tenofovir (TDF) [Truvada] 100-150 mg tablet 1 tab PO DAILY Patient Comments: not taking
--- NOTE | 2022-11-24 04:44 | NUR.NOTE ---
Nursing Note: Pt showered and oral care. Clean scrubs and linen were provided
[2022-11-24 07:42] VITALS: BP 129/80; PULSE 71; RESP 18; TEMP 37.1; O2SAT 98
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
--- NOTE | 2022-11-24 10:54 | ED.PROG_ITS ---
Date of service: 11/24/22 Time of Service: 10:54 Medical Decision Making patient calm and cooperative still seeking voluntary placement, will continue to observe until placement found Sign Out Sign Out Data: Sign Out Comment: Altered mental status, History of Head Injury, unknown timeframe. Patient has a small hematoma in the superficial abrasion noted to her frontal scalp. Significant other called law enforcement due to missing person since yesterday. Patient is confused and acting erratically. Flight of ideas crying. Denies suicidal ideation or homicidal ideation. CT head ordered urine drug screen and mental health evaluation. Last updated by Aury Velazquez NP at 11/22/22 15:30 Sign Out Comment: patient is being held on voluntary inpatient psychiatric admi ssion. would EE if she decides to leave, child protective services report made by mental health Last updated by Dian Mason NP at 11/22/22 23:02 Sign Out Comment: Awaits final disposition, voluntary psychiatric admission Last updated by Jeramy Rush MD at 11/23/22 07:15 Sign Out Comment: voluntary for flight of ideas, stable during shift Last updated by Romain Hayward MD at 11/23/22 16:29 Sign Out Comment: No events overnight. Continue to monitor while awaiting placement. Last updated by Tamy Hawk DO at 11/24/22 07:46 Discharge Plan Discharge Details Chief Complaint: AMS/LOC Primary Care Provider: Mary Hoang ED Provider: Romain Hayward Home Meds and New Rx's Prescriptions: No Action calcium carbonate [Tums] 200 mg calcium (500 mg) tablet,chewable 200 mg PO BID Patient Comments: not taking loratadine 10 mg capsule 10 mg PO DAILY Patient Comments: not taking prenat.vits,maria eugenia,[id number] Tablet 1 tab PO DAILY Patient Comments: not taking emtricitabine-tenofovir (TDF) [Truvada] 100-150 mg tablet 1 tab PO DAILY Patient Comments: not taking
--- NOTE | 2022-11-24 12:31 | PDOC.CMSAFED ---
- If Service Date Differs Date of service: 11/24/22 Time of Service: 12:31 Care Management Safety Plan Status: Voluntary - Reason for Wait Reason for Wait: Inpatient Admission VOLUNTARY FOR INPATIENT PSYCHIATRIC STABILIZATION. Patient is appropriate in all interactions since arriving at [facility]; Pt has demonstrated appropriate coping and communication skills, has articulated his or her needs and concerns and is fully engaged during staff interactions. A safety huddle was held at 12:[address] Yesy Calvert, high school tutor Rory, charge nurse Soni and FIDEL Peralta. Safety plan has been established with patient, and care team, to adhere to patient goals, identify restrictions based on behavioral status, address nutrition, and determine allowed personal belongings, tools for hygiene and personal care. Determine level of activity including ambulation, level of supervision, visitors, and determine privileges based on behaviors and level of engagement by pt. SAFETY PLAN: 1. Will remain on suicide precautions. In Paper Clothes 2. Will remain in room under direct supervision of one-on-one staff at all times provided by CPSO; LIBRA, CIVIL STRUCTURAL ENGINEER admissions coordinator. 3. May have paper cups, plates, finger foods as well as a cardboard spoon with which to eat meals. 4. Follow [facility] Management of the Admitted Behavioral Health Patient policy. 5. Comfort bath system only, shower permitted with escort at RN discretion. 6. No personal belongings-soft items permitted at RN discretion. 7. Visitors-none at this time. 8. Activities: soft cart items approved per RN discretion. 9. Bathroom privileges with escort in the ED, available in room without limitation on M/S. 10. Phone: may call her aunt Ilana Tom, brother Roger Silva, [id number] Eli, friend Dorie and Stephy (brother's mother) at RN discretion using portable hospital phone. 11. Due to VOLUNTARY status, if patient wishes to leave [facility], staff will contact [facility] Crisis Screener ([phone]) and On-Call Telephone Station Repairer ([phone]) as soon as possible. In the event of elopement, notify [facility] Police ([phone]). Patient is currently voluntarily at [facility] and seeking inpatient admission when a bed becomes available. [facility] Frontline Clinical Reviewer will continue seeking placement. Please contact the [employer] Certified Network Associate Telephone Station Repairer ([phone]) and [facility] Clinical Reviewer ([phone]) for any needed changes in the Safety Plan. Safety plan has been provided to interdepartmental care team. cc: Dictated by: Kathryn Chavira
--- NOTE | 2022-11-24 12:37 | PDOC.ERCMPRO ---
- If Service Date Differs Date of service: 11/24/22 Time of Service: 12:37 Care Management Progress Note S/O:Margarita was sitting up in bed when CM met with her. She remains pleasant and cooperative and engaged well with CM. Margarita informed CM that she decided that she wanted to update her HIPAA and allow some family members to receive information. CM assisted with the form and provided Margarita with a copy at her request. A huddle was held with providers and staff and her Safety Plan was updated to allow her to make phone calls to some of her friends and family, but not her SO Williams. FIDEL shared with Margarita that it is unlikely she will transfer today as there are not usually many discharges on the weekend. Her response was I don't care. I like it here. She went on to add that she feels comfortable here. Margarita had more questions about psychiatric hospitalizations which CM answered. P: Margarita is awaiting voluntary placement in a psychiatric facility for stabilization.
--- NOTE | 2022-11-24 17:51 | NUR.NOTE ---
Nursing Note: Patient talking with this CPSO verbalizing that she is concerned about her daughter and has not heard from anyone about how she is doing. She would like to be able to find out how her daughter is
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
--- NOTE | 2022-11-25 00:17 | W.EDPROG ---
Date of service: 11/24/22 Time of Service: 20:00 Medical Decision Making 11/24/221999 --please see previous provider's notes for initial presentation, exam and plan. Case endorsed to continue to monitor while awaiting placement. 11/25/22 0730 --no events overnight. Case endorsed to oncoming provider to continue to monitor while awaiting placement. Sign Out Sign Out Data: Sign Out Comment: Altered mental status, History of Head Injury, unknown timeframe. Patient has a small hematoma in the superficial abrasion noted to her frontal scalp. Significant other called law enforcement due to missing person since yesterday. Patient is confused and acting erratically. Flight of ideas crying. Denies suicidal ideation or homicidal ideation. CT head ordered urine drug screen and mental health evaluation. Last updated by Aury Velazquez NP at 11/22/22 15:30 Sign Out Comment: patient is being held on voluntary inpatient psychiatric admission. would EE if she decides to leave, child protective services report made by mental health Last updated by Dian Mason NP at 11/22/22 23:02 Sign Out Comment: Awaits final disposition, voluntary psychiatric admission Last updated by Jeramy Rush MD at 11/23/22 07:15 Sign Out Comment: voluntary for flight of ideas, stable during shift Last updated by Romain Hayward MD at 11/23/22 16:29 Sign Out Comment: No events overnight. Continue to monitor while awaiting placement. Last updated by Tamy Hawk DO at 11/24/22 07:46 Sign Out Comment: no issues during day shift Last updated by Romain Hayward MD at 11/24/22 16:21 Discharge Plan Discharge Details Chief Complaint: AMS/LOC Primary Care Provider: Mary Hoang ED Provider: Tamy Hawk Home Meds and New Rx's Prescriptions: No Action calcium carbonate [Tums] 200 mg calcium (500 mg) tablet,chewable 200 mg PO BID Patient Comments: not taking loratadine 10 mg capsule 10 mg PO DAILY Patient Comments: not taking prenat.vits,maria eugenia,[id number] Tablet 1 tab PO DAILY Patient Comments: not taking emtricitabine-tenofovir (TDF) [Truvada] 100-150 mg tablet 1 tab PO DAILY Patient Comments: not taking
--- NOTE | 2022-11-25 10:14 | NUR.NOTE ---
Nursing Note: Pt sitting in room, eating. No need voiced. CPSO at bedside. Will cont to monitor.
[2022-11-25 13:14] LABS: Abs Immature Grans 0.03 10^3/uL (0.0-0.06); Absolute Basophil Count 0.04 10^3/uL (0.0-0.2); Absolute Eosinophil Count 0.05 10^3/uL (0.0-0.7); Absolute Lymphocyte Count 2.01 10^3/uL (1.2-3.4); Absolute Monocyte Count 0.65 10^3/uL (0.1-0.8); Basophils % 0.4; Eosinophils % 0.5; HCT 48.6 % (36.0-46.0); HGB 16.7 g/dL (11.2-15.7); Immature Grans % 0.3; Lymphocytes % 18.4; MCH 31.3 pg (27.0-33.0); MCHC 34.4 % (32.0-36.0); MCV 91 fL (80-95); MPV 10.2 fL (8.0-11.0); Neutrophils % 74.4; Platelet Count 318 10^3/uL (130-400); RBC 5.33 10^6/uL (3.93-5.22); RDW 12.5 % (11.7-14.6); RDW-SD 41.1 fL
[2022-11-25 13:15] LABS: Absolute Neutrophil Count 8.11 10^3/uL (1.2-6.7)
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
[2022-11-25 13:35] LABS: Salicylate 3.8 mg/dL (<2.8)
[2022-11-25 13:42] LABS: Acetaminophen < 2 ug/mL (10-30)
[2022-11-25 13:45] LABS: ALT 26 U/L (14-59); AST 12 U/L (15-37); Albumin 4.8 g/dL (3.4-5.0); Alkaline Phosphatase 56 U/L (46-116); Anion Gap 10.8 mmol/L (3-11); BUN 12 mg/dL (7-18); Bilirubin, Total 0.5 mg/dL (0.2-1.0); CO2 25.2 mmol/L (21.0-32.0); CREATININE 0.8 mg/dL (0.55-1.02); Calcium 9.5 mg/dL (8.5-10.1); Chloride 106 mmol/L (98-107); Estimated GFR 100.33 (mL/min/1.73m2); Glucose 91 mg/dL (74-106); Sodium 142 mmol/L (136-145); TSH (W/Ref FT4) 1.46 uIU/mL (0.36-3.74); Total Protein 7.9 g/dL (6.4-8.2)
--- NOTE | 2022-11-25 14:39 | NUR.NOTE ---
Nursing Note: Pt sleeping, no distress noted. Will cont to monitor. CPSO at bedside.
--- NOTE | 2022-11-25 15:28 | ED.PROG_ITS ---
Date of service: 11/25/22 Time of Service: 15:28 Medical Decision Making Patient awaiting voluntary psychiatric placement. [facility] considering excepting the patient and requesting labs. Screening labs were performed and were nondiagnostic. Lab Data Lab results reviewed: Yes I reviewed the patient's lab results. Labs: Laboratory Tests Range/Units 11/22/22 11/22/22 11/25/22 14:52 14:52 13:04 WBC (4.4-10.8) 10^3/uL RBC (3.93-5.22) 10^6/uL Hgb (11.2-15.7) g/dL Hct (36.0-46.0) % MCV (80-95) fL MCH (27.0-33.0) pg MCHC (32.0-36.0) % RDW (11.7-14.6) % Plt Count (130-400) 10^3/uL MPV (8.0-11.0) fL Immature Gran % Neutrophils % Lymphocytes % Monocytes % Eosinophils % Basophils % Nucleated RBC % (0.0-0.3) % Absolute Neutrophils (1.2-6.7) 10^3/uL Absolute Lymphocytes (1.2-3.4) 10^3/uL Absolute Monocytes (0.1-0.8) 10^3/uL Absolute Eosinophils (0.0-0.7) 10^3/uL Absolute Basophils (0.0-0.2) 10^3/uL Sodium (136-145) mmol/L 142 Potassium (3.5-5.1) mmol/L 4.0 Chloride (98-107) mmol/L 106 Carbon Dioxide (21.0-32.0) mmol/L 25.2 Anion Gap (3-11) mmol/L 10.8 BUN (7-18) mg/dL 12 Creatinine (0.55-1.02) mg/dL 0.8 Est GFR (CKD-EPI 2020) (mL/min/1.73m2) 100.33 Glucose (74-106) mg/dL 91 Calcium (8.5-10.1) mg/dL 9.5 Total Bilirubin (0.2-1.0) mg/dL 0.5 AST (15-37) U/L 12 L ALT (14-59) U/L 26 Alkaline Phosphatase (46-116) U/L 56 Total Protein (6.4-8.2) g/dL 7.9 Albumin (3.4-5.0) g/dL 4.8 TSH (0.36-3.74) uIU/mL 1.46 Urine Color (Yellow) Malinda Urine Clarity (Clear) Clear Urine pH (5-8) 6.0 Ur Specific [place] (1.005-1.025) >= 1.030 H Urine Protein (Negative) mg/dL 100 H Urine Ketones (Negative) mg/dL 15 H Urine Blood (Negative) Trace-intact H Urine Nitrite (Negative) Negative Urine Bilirubin (Negative) Small H Urine Urobilinogen (Up to 0.2) mg/dL 0.2 Ur Leukocyte Esterase (Negative) Negative Urine RBC (0-2) HPF 3-5 H Urine WBC (0-5) HPF 0-2 Ur Epithelial Cells (Negative) HPF Many Urine Crystals (Negative) HPF Negative Urine Bacteria (Negative) HPF Negative Urine Casts (Negative) LPF Negative Urine Mucus (Negative) Negative Urine Other (Negative) Negative Ur Culture Indicated? No Urine Glucose (Negative) mg/dL Negative Salicylates (<2.8) mg/dL Urine Opiates Screen (Negative) Negative Urine Methadone Screen (Negative) Negative Acetaminophen (10-30) ug/mL Ur Barbiturates Screen (Negative) Negative Ur Tricyclics Screen (Negative) Negative Ur Amphetamines Screen (Negative) Negative U Benzodiazepines Scrn (Negative) Negative Urine Cocaine Screen (Negative) Negative Ur THC Screen (Negative) Positive A Range/Units 11/25/22 11/25/22 13:04 13:04 WBC (4.4-10.8) 10^3/uL 10.90 H RBC (3.93-5.22) 10^6/uL 5.33 H Hgb (11.2-15.7) g/dL 16.7 H Hct (36.0-46.0) % 48.6 H MCV (80-95) fL 91 MCH (27.0-33.0) pg 31.3 MCHC (32.0-36.0) % 34.4 RDW (11.7-14.6) % 12.5 Plt Count (130-400) 10^3/uL 318 MPV (8.0-11.0) fL 10.2 Immature Gran % 0.3 Neutrophils % 74.4 Lymphocytes % 18.4 Monocytes % 6.0 Eosinophils % 0.5 Basophils % 0.4 Nucleated RBC % (0.0-0.3) % 0.0 Absolute Neutrophils (1.2-6.7) 10^3/uL 8.11 H Absolute Lymphocytes (1.2-3.4) 10^3/uL 2.01 Absolute Monocytes (0.1-0.8) 10^3/uL 0.65 Absolute Eosinophils (0.0-0.7) 10^3/uL 0.05 Absolute Basophils (0.0-0.2) 10^3/uL 0.04 Sodium (136-145) mmol/L Potassium (3.5-5.1) mmol/L Chloride (98-107) mmol/L Carbon Dioxide (21.0-32.0) mmol/L Anion Gap (3-11) mmol/L BUN (7-18) mg/dL Creatinine (0.55-1.02) mg/dL Est GFR (CKD-EPI 2020) (mL/min/1.73m2) Glucose (74-106) mg/dL Calcium (8.5-10.1) mg/dL Total Bilirubin (0.2-1.0) mg/dL AST (15-37) U/L ALT (14-59) U/L Alkaline Phosphatase (46-116) U/L Total Protein (6.4-8.2) g/dL Albumin (3.4-5.0) g/dL TSH (0.36-3.74) uIU/mL Urine Color (Yellow) Urine Clarity (Clear) Urine pH (5-8) Ur Specific [place] (1.005-1.025) Urine Protein (Negative) mg/dL Urine Ketones (Negative) mg/dL Urine Blood (Negative) Urine Nitrite (Negative) Urine Bilirubin (Negative) Urine Urobilinogen (Up to 0.2) mg/dL Ur Leukocyte Esterase (Negative) Urine RBC (0-2) HPF Urine WBC (0-5) HPF Ur Epithelial Cells (Negative) HPF Urine Crystals (Negative) HPF Urine Bacteria (Negative) HPF Urine Casts (Negative) LPF Urine Mucus (Negative) Urine Other (Negative) Ur Culture Indicated? Urine Glucose (Negative) mg/dL Salicylates (<2.8) mg/dL 3.8 Urine Opiates Screen (Negative) Urine Methadone Screen (Negative) Acetaminophen (10-30) ug/mL < 2 Ur Barbiturates Screen (Negative) Ur Tricyclics Screen (Negative) Ur Amphetamines Screen (Negative) U Benzodiazepines Scrn (Negative) Urine Cocaine Screen (Negative) Ur THC Screen (Negative) Sign Out Sign Out Data: Sign Out Comment: Altered mental status, History of Head Injury, unknown timeframe. Patient has a small hematoma in the superficial abrasion noted to her frontal scalp. Significant other called law enforcement due to missing person since yesterday. Patient is confused and acting erratically. Flight of ideas crying. Denies suicidal ideation or homicidal ideation. CT head ordered urine drug screen and mental health evaluation. Last updated by Aury Velazquez NP at 11/22/22 15:30 Sign Out Comment: patient is being held on voluntary inpatient psychiatric admission. would EE if she decides to leave, child protective services report made by mental health Last updated by Dian Mason NP at 11/22/22 23:02 Sign Out Comment: Awaits final disposition, voluntary psychiatric admission Last updated by Jeramy Rush MD at 11/23/22 07:15 Sign Out Comment: voluntary for flight of ideas, stable during shift Last updated by Romain Hayward MD at 11/23/22 16:29 Sign Out Comment: No events overnight. Continue to monitor while awaiting placement. Last updated by Tamy Hawk DO at 11/24/22 07:46 Sign Out Comment: no issues during day shift Last updated by Romain Hayward MD at 11/24/22 16:21 Sign Out Comment: No events overnight. Continue to monitor while awaiting placement. Last updated by Tamy Hawk DO at 11/25/22 07:40 Discharge Plan Discharge Details Chief Complaint: AMS/LOC Primary Care Provider: Mary Hoang ED Provider: Prince Aranda Home Meds and New Rx's Prescriptions: No Action calcium carbonate [Tums] 200 mg calcium (500 mg) tablet,chewable 200 mg PO BID Patient Comments: not taking loratadine 10 mg capsule 10 mg PO DAILY Patient Comments: not taking prenat.vits,maria eugenia,[id number] Tablet 1 tab PO DAILY Patient Comments: not taking emtricitabine-tenofovir (TDF) [Truvada] 100-150 mg tablet 1 tab PO DAILY Patient Comments: not taking
--- NOTE | 2022-11-25 15:59 | PDOC.CMSAFED ---
- If Service Date Differs Date of service: 11/25/22 Time of Service: 15:59 Care Management Safety Plan Status: Voluntary - Reason for Wait Reason for Wait: Inpatient Admission VOLUNTARY FOR INPATIENT PSYCHIATRIC STABILIZATION. Patient is appropriate in all interactions since arriving at [facility]; Pt has demonstrated appropriate coping and communication skills, has articulated his or her needs and concerns and is fully engaged during staff interactions. Safety plan has been established with patient, and care team, to adhere to patient goals, identify restrictions based on behavioral status, address nutrition, and determine allowed personal belongings, tools for hygiene and personal care. Determine level of activity including ambulation, level of supervision, visitors, and determine privileges based on behaviors and level of engagement by pt. SAFETY PLAN: 1. Will remain on suicide precautions. In Paper Clothes 2. Will remain in room under direct supervision of one-on-one staff at all times provided by CPSO; LIB[employer], [employer] UNIFIED COMMUNICATIONS ENGINEER grating machine operator. 3. May have paper cups, plates, finger foods as well as a cardboard spoon with which to eat meals. 4. Follow [facility] Management of the Admitted Behavioral Health Patient policy. 5. Comfort bath system only, shower permitted with escort at RN discretion. 6. No personal belongings-soft items permitted at RN discretion. 7. Visitors-none at this time. 8. Activities: soft cart items approved per RN discretion. 9. Bathroom privileges with escort in the ED, available in room without limitation on M/S. 10. Phone: may call her aunt Ilana Tom, brother Roger Silva, [id number] Eli, friend Dorie and Stephy (brother's mother) at RN discretion using portable hospital phone. 11. Due to VOLUNTARY status, if patient wishes to leave [facility], staff will contact [facility] Crisis Screener ([phone]) and On-Call Wire Communications Engineer ([phone]) as soon as possible. In the event of elopement, notify [place] [employer] ([phone]). Patient is currently voluntarily at [facility] and seeking inpatient admission when a bed becomes available. [facility] Frontline Solution Developer will continue seeking placement. Please contact the High School Music Instructor Wire Communications Engineer ([phone]) and [facility] Solution Developer ([phone]) for any needed changes in the Safety Plan. Safety plan has been provided to interdepartmental care team.
--- NOTE | 2022-11-25 16:00 | CMPROGNOTE_ITS ---
- If Service Date Differs Date of service: 11/25/22 Time of Service: 16:00 Care Management Progress Note S/O: Margarita was sitting near the door, interacting with her CPSO when CM was in the ED. CM contacted [facility] for an update regarding Margarita's plan. Per Bess, Margarita remains voluntary seeking inpatient psychiatric hospitalization. Margarita is reportedly disorganized, stating that the voices from her cell phone are telling her what to do, per [facility]. Referrals were sent to [facility], [facility] and [facility] are reviewing, but there are no beds available today. P: Margarita is awaiting voluntary placement in a psychiatric facility for stabilization. CM will coordinate secure transport once a bed becomes available. She will follow up with her PCP and discharge plan of care.
--- NOTE | 2022-11-25 16:59 | NUR.NOTE ---
Nursing Note: Report given to Fina SUNG at [facility]. States ok to set up transport to facility
[2022-11-25 17:05] VITALS: BP 123/86; PULSE 80; RESP 16; O2SAT 98
--- NOTE | 2022-11-25 17:17 | ED.PROG_ITS ---
Date of service: 11/25/22 Time of Service: 17:18 Medical Decision Making spoke with Dr. Sultana at [facility] who has accepted for transfer, pt stable and cooperative, arrangements for transport being made Sign Out Sign Out Data: Sign Out Comment: Altered mental status, History of Head Injury, unknown timeframe. Patient has a small hematoma in the superficial abrasion noted to her frontal scalp. Significant other called law enforcement due to missing person since yesterday. Patient is confused and acting erratically. Flight of ideas crying. Denies suicidal ideation or homicidal ideation. CT head ordered urine drug screen and mental health evaluation. Last updated by Aury Velazquez NP at 11/22/22 15:30 Sign Out Comment: patient is being held on voluntary inpatient psychiatric admission. would EE if she decides to leave, child protective services report made by mental health Last updated by Dian Mason NP at 11/22/22 23:02 Sign Out Comment: Awaits final disposition, voluntary psychiatric admission Last updated by Jeramy Rush MD at 11/23/22 07:15 Sign Out Comment: voluntary for flight of ideas, stable during shift Last updated by Romain Hayward MD at 11/23/22 16:29 Sign Out Comment: No events overnight. Continue to monitor while awaiting placement. Last updated by Tamy Hawk DO at 11/24/22 07:46 Sign Out Comment: no issues during day shift Last updated by Romain Hayward MD at 11/24/22 16:21 Sign Out Comment: No events overnight. Continue to monitor while awaiting placement. Last updated by Tamy Hawk DO at 11/25/22 07:40 Sign Out Comment: Patient awaiting voluntary psychiatric placement. [facility] considering - requested labs. Labs nondiagnostic. Last updated by Prince Aranda MD at 11/25/22 15:31 Discharge Plan Disposition Specific Psychiatric Facility: [facility] Condition: Stable Discharge Details Chief Complaint: AMS/LOC Clinical Impression: Psychosis Primary Care Provider: Mary Hoang ED Provider: Romain Hayward Home Meds and New Rx's Prescriptions: No Action calcium carbonate [Tums] 200 mg calcium (500 mg) tablet,chewable 200 mg PO BID Patient Comments: not taking loratadine 10 mg capsule 10 mg PO DAILY Patient Comments: not taking prenat.vits,maria eugenia,[id number] Tablet 1 tab PO DAILY Patient Comments: not taking emtricitabine-tenofovir (TDF) [Truvada] 100-150 mg tablet 1 tab PO DAILY Patient Comments: not taking
--- NOTE | 2022-11-26 09:15 | NUR.NOTE ---
Nursing Note: Accessed pt chart to get the transfer time for Queta Bess.
--- NOTE | 2022-11-27 16:39 | NUR.NOTE ---
Nursing Note: Patient called asking about a safety plan for her. I explained that [facility] does a safety plan when a pt goes home and we have a safety plan while they are a patient in the ED. She said she understood, she wanted to call [facility] and I gave her the phone number to do this.
== END 2022-11-25 18:28 ==
PROVIDERS: Registered Nurse Emergency; Student in an Organized Health Care Education/Training Program; Emergency Provider Emergency Medicine; PCP Registered Nurse
DX: F29 Unspecified psychosis not due to a substance or known physiological condition (principal); S00.03XA Contusion of scalp, initial encounter; F41.9 Anxiety disorder, unspecified; J45.909 Unspecified asthma, uncomplicated; W22.8XXA Striking against or struck by other objects, initial encounter
CPT/HCPCS: 80053; 80307; 81025; 99285; 70450; 80329; 81003; 81015; 84443; 85025

== ENCOUNTER 2023-06-26 15:58 | Outpatient (REF) | payer MEDICAID, SELFPAY ==
[2023-06-30 11:23] LABS: HSV Type 1 Ab, IgG Negative (Negative); HSV Type 2 Ab, IgG Negative (Negative)
== END 2023-06-26 15:59 | disposition home or self-care (01) ==
LOC: NCHCN 15:58
PROVIDERS: PCP Registered Nurse; Visit Provider Nurse Practitioner Family
DX: K13.0 Diseases of lips (principal)
CPT/HCPCS: 86695; 86696

== ENCOUNTER 2024-01-12 16:21 | Outpatient (REF) | payer MEDICAID, SELFPAY ==
--- NOTE | 2024-01-12 15:15 | PAPFT_PTH ---
PATIENT: Margarita Boyce LOC: [facility]#:[id number] AGE/SX: 33/F ROOM: RE01/12/[address]: Kole Lira : 1990 BED: DIS: 01/12/2024 SPEC #: [id number] RECD: 01/13/24 12:52 STATUS: [facility]AD[facility] REQ #: [id number] RUMA: 01/12/24 15:[address]: Yael Liralaide [facility] Cytology RECD BY: Jocelin Anna ENTERED: 01/13/24 12:52 SP TYPE: PAPFT OTHR DR: Mary Hoang Tissues: 1 - CX/ENDOCX FOR PAP SMEARS Procedures: PAP THIN PREP/UVM Screening HPV DNA PROBE Comments: [id number] (CHLAMYDIA/GC)
[2024-01-12 19:02] LABS: Abs Immature Grans 0.02 10^3/uL (0.0-0.06); Absolute Basophil Count 0.07 10^3/uL (0.0-0.2); Absolute Eosinophil Count 0.19 10^3/uL (0.0-0.7); Absolute Lymphocyte Count 2.27 10^3/uL (1.2-3.4); Absolute Monocyte Count 0.49 10^3/uL (0.1-0.8); Absolute Neutrophil Count 5.48 10^3/uL (1.2-6.7); Basophils % 0.8 %; Eosinophils % 2.2 %; HCT 43.5 % (36.0-46.0); HGB 14.6 g/dL (11.2-15.7); Immature Grans % 0.2 %; Lymphocytes % 26.6 %; MCHC 33.6 % (32.0-36.0); MCV 92 fL (80-95); MPV 9.9 fL (8.0-11.0); Monocytes % 5.8 %; Neutrophils % 64.4 %; Platelet Count 353 10^3/uL (130-400); RBC 4.71 10^6/uL (3.93-5.22); RDW-SD 41.7 fL; WBC 8.52 10^3/uL (4.4-10.8)
[2024-01-12 19:21] LABS: Calculated LDL 89 mg/dL (<100); Cholesterol 167 mg/dL (<200); HDL Cholesterol 56 mg/dL (40-60); LDL CHOLESTEROL 91 mg/dL (<100); Triglyceride 112 mg/dL (<150)
[2024-01-12 19:22] LABS: Hemoglobin A1C 5.3 % (<5.7)
[2024-01-14 17:12] LABS: Chlamydia Result Negative (Negative); GC Result Negative (Negative)
== END 2024-01-12 16:22 | disposition home or self-care (01) ==
LOC: NCHCN 16:21
PROVIDERS: PCP Registered Nurse; Visit Provider Nurse Practitioner Family
DX: R63.5 Abnormal weight gain (principal); Z13.1 Encounter for screening for diabetes mellitus; Z13.220 Encounter for screening for lipoid disorders; R53.83 Other fatigue
CPT/HCPCS: 80061; 83721; 87491; 87591; 88142; 83036; 84443; 85025; 87624